=== PATIENT | female | born 1995 | race Caucasian/White ===

== ENCOUNTER 2021-06-08 16:26 | Emergency (ER) | payer BC, OTHER ==
[~2021-06-08] VITALS: Ht 165.1 cm; Wt 90.9 kg
[2021-06-08 17:17] VITALS: BP 128/67
[2021-06-08] MEDS ORDERED: CLIN-95 PO (18:09)
--- NOTE | 2021-06-08 18:10 | PHYS DOC ---
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 Patient also complaining of right cheek swelling, symptoms began 3 days ago. 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 Denies any fever, denies any trismus. States her pain is worse on eating. (JOSEPH ADAMS WELDING MACHINE OPERATOR G[employer]) Review of Systems Review of Systems Constitutional: Denies fever or chills [] HENT: Reports right sided dental pain and swelling denies nasal congestion or sore throat [] Musculoskeletal: Denies back pain or joint pain [] Integument: Denies rash or skin lesions [] Neurologic: Denies headache, focal weakness or sensory changes [] All other systems were reviewed and found to be within normal limits, except as documented in this note. (JOSEPH ADAMS WELDING MACHINE OPERATOR [employer]) Allergies Allergies Allergies Coded Allergies Type Severity Reaction Last Updated Verified Penicillins Allergy Unknown 12/27/15 Yes Sulfa (Sulfonamide Antibiotics) Allergy Unknown 12/27/15 Yes (JOSEPH ADAMS WELDING MACHINE OPER[employer]) Physical Exam Physical Exam Constitutional: Well developed, well nourished, no acute distress, non-toxic appearance. [] HENT: Normocephalic, atraumatic, bilateral external ears normal, oropharynx moist, no oral exudates, nose normal. [] Right cheek noted for mild swelling consistent with a dental abscess. Dental d ecay noted on the right lower and upper teeth. No drainable abscess noted. Gum erythema noted on the right side. Skin: Warm, dry, no erythema, no rash. [] Back: No tenderness, no CVA tenderness. [] Extremities: No tenderness, no cyanosis, no clubbing, ROM intact, no edema. [] Neurologic: Alert and oriented X 3, normal motor function, normal sensory function, no focal deficits noted. [] Psychologic: Affect normal, judgement normal, mood normal. [] (ANGIEJOSEPH Ta APRN) Current Patient Data Vital Signs Vital Signs Date Time Temp Pulse Resp B/P (MAP) Pulse Ox O2 Delivery O2 Flow Rate FiO2 06/08/21 17:17 98.4 84 16 128/67 (87) 98 Room Air (JOSEPH ADAMS Cely HODGE) EKG EKG [] (JANISTravJOSEPH APRN) Radiology/Procedures Radiology/Procedures [] (JANISTravJOSEPH APRN) Heart Score C/O Chest Pain: N/A Risk Factors: Risk Factors: DM, Current or recent (<one month) smoker, HTN, HLP, family history of CAD, obesity. Risk Scores: Risk Factors: DM, Current or recent (<one month) smoker, HTN, HLP, family history of CAD, obesity. (JOSEPH ADAMS APRN) Course & Med Decision Making Course & Med Decision Making Pertinent Labs and Imaging studies reviewed. (See chart for details) This a 25-year-old female patient with a dental abscess. Discharged on clindamycin. Follow-up with the dentist in 1 to 2 weeks (JOSEPH ADAMS APRN) Course & Med Decision Making Did not see or evaluate patient. Did not discuss patient with [employer]. Agree with PU[employer]'s work-up and disposition per note. (AUREA RIOS MD) Dragon Disclaimer Dragon Disclaimer This electronic medical record was generated, in whole or in part, using a voice recognition dictation system. (JOSEPH ADAMS APRN) Departure Departure: Impression: Primary Impression: Dental abscess Disposition: HOME / SELF CARE / HOMELESS Condition: STABLE Referrals: PCP,NO (PCP) Follow-up with your dentist in 1 to 2 weeks Patient Instructions: Dental Abscess Additional Instructions: You have a dental abscess. Take the prescribed antibiotics until completed. Follow-up with your own dentist in 1 to 2 weeks Scripts Clindamycin Hcl (CLINDAMYCIN HCL) 300 Mg Capsule 1 CAP PO TID, #21 CAP Prov: JOSEPH ADAMS APRN 06/08/21 JOSEPH ADAMS APRN Jun 08, 2021 18:09 AUREA RIOS MD Jun 08, 2021 18:22
== END 2021-06-08 18:35 | disposition home or self-care (01) ==
LOC: ER 16:26
DX: K04.7 Periapical abscess without sinus (principal); K02.9 Dental caries, unspecified; F17.210 Nicotine dependence, cigarettes, uncomplicated; Z88.0 Allergy status to penicillin; Z88.2 Allergy status to sulfonamides
CPT/HCPCS: 99283